=== PATIENT | female | born 1945 ===

== ENCOUNTER 2018-09-28 11:08 | Outpatient (CLI) | payer MEDICARE | END 2018-09-28 11:09 | disposition home or self-care (01) | LOC: C.PAT 11:08 ==

== ENCOUNTER 2018-10-04 06:24 | Day surgery (SDC) | payer MEDICARE ==
[2018-09-28 11:35] VITALS: BMI 24.0
[2018-10-04] MEDS ORDERED: Lidocaine 2% MPF (5 ml) Inj ONE (07:12)
[2018-10-04] MEDS ORDERED: Midazolam 2 MG/2 ML VIAL ONE (07:42)
[2018-10-04] MEDS ORDERED: Propofol 10 mg/ml Inj (20 ML) ONE (07:43)
--- NOTE | 2018-10-04 08:33 | PCM.SURG1 ---
Surgeon's Initial Post Op Note - Surgeon's Notes Surgeon: Dr. Marquez Package Lift Operator: Dr. Sawyer PGY3 Type of Anesthesia: IV Sedation Pre-Operative Diagnosis: colon ca, remission Operative Findings: see dictation Post-Operative Diagnosis: same Operation Performed: portacath removal Specimen/Specimens Removed: none Estimated Blood Loss: EBL {In ML}: 5 Blood Products Given: N/A Drains Used: No Drains Post-Op Condition: Good Date of Surgery/Procedure: 10/04/18 Time of Surgery/Procedure: 08:32
[2018-10-04 10:08] VITALS: BP 105/64; PULSE 66; RESP 18; TEMP 97.3; O2SAT 98
--- NOTE | 2018-10-04 19:35 | OP ---
PROCEDURE DATE: 10/04/2018 PREOPERATIVE DIAGNOSIS: Unnecessary intravascular device, Port-A-Cath. POSTOPERATIVE DIAGNOSIS: Unnecessary intravascular device, Port-A-Cath. PROCEDURE CARRIED OUT: Removal of Port-A-Cath. SURGEON: Mohinder Marquez Jr., MD MECHANIC RECOVERY: Ca Sawyer DO ANESTHESIOLOGIST: Mr. Rivera. ANESTHESIA: General anesthesia. INDICATION: The patient is a 73-year-old woman with a history of intraabdominal malignancy, who no longer requires a Port-A-Cath. OPERATIVE FINDINGS: The entire port was removed and discarded. DESCRIPTION OF PROCEDURE: The patient was given local anesthesia. An incision was made after grasping the port and this was removed entirely, appeared intact. Bleeding was controlled. Blood loss for this procedure was less than 5 mL. Wound was closed with steri-strips after closing the subcutaneous tissues. Operation carried out was removal of Port-A-Cath, right chest wall. Mohinder Marquez Jr., MD
== END 2018-10-04 10:19 | disposition home or self-care (01) ==
LOC: C.SDS 06:24
PROVIDERS: ATTEND Surgery Vascular Surgery
DX: Z45.2 Encounter for adjustment and management of vascular access device (principal); Z85.028 Personal history of other malignant neoplasm of stomach
CPT/HCPCS: 36590; 82948; J2250; J2704; J3010